=== PATIENT | female | born 1930 | race Caucasian/White ===

== ENCOUNTER 2016-10-14 11:10 | Emergency (ER) | payer OTHER ==
[~2016-10-14] VITALS: Ht 165.1 cm; Wt 72.6 kg
[~2016-10-14 11:10] MED LIST: AGGRENOX 25/2001 EA PO; ASPIRIN CHEWABL81 MG PO; GOOD NEIGHBOR M25 MG PO; HYDROCODONE BIT1 T11 PO; LACTINEX 0.2 MG1 TAB PO; LEVOXYL50 MCG PO; LOPRESSOR50 M1 PO; LOVASTATIN40 MG PO; MELOXICAM7.5 MG PO; METOPROLOL TART50 M1 PO; NEXIUM40 MG PO; PEPTIC REL262 MG/15 PO; Synthroid,Levo50 MCG PO; [UNRECOGNIZED DRUG - OTHER] PO
[2016-10-14] MEDS ORDERED: HYDROCODONE BIT1 T11 PO (16:05)
== END 2016-10-14 22:31 | disposition home or self-care (01) ==
LOC: ED 11:10
DX: S33.8XXA Sprain of other parts of lumbar spine and pelvis, initial encounter (principal); Z79.82 Long term (current) use of aspirin; Z79.899 Other long term (current) drug therapy; W18.39XA Other fall on same level, initial encounter; Y93.89 Activity, other specified; Y92.039 Unspecified place in apartment as the place of occurrence of the external cause; Y99.9 Unspecified external cause status